=== PATIENT | female | born 1990 | race African-American/Black ===

== ENCOUNTER 2020-06-18 16:03 | Emergency (ER) | payer MEDICAID, OTHER ==
[~2020-06-18] VITALS: Ht 162.6 cm; Wt 57.6 kg
[2020-06-18 16:27] VITALS: BP 127/78
[2020-06-18] MEDS ORDERED: ACETAMINOPHEN 325 MG TAB PO ONE (17:45)
== END 2020-06-18 17:54 | disposition left against medical advice (07) ==
LOC: ER 16:05
DX: R21 Rash and other nonspecific skin eruption (principal); Z53.21 Procedure and treatment not carried out due to patient leaving prior to being seen by health care provider

== ENCOUNTER 2021-04-24 02:25 | Emergency (ER) | payer MEDICAID ==
[~2021-04-24] VITALS: Ht 162.6 cm; Wt 63.5 kg
[2021-04-24 05:45] VITALS: BP 118/91
== END 2021-04-24 06:00 | disposition home or self-care (01) ==
LOC: ER 02:25
DX: J03.80 Acute tonsillitis due to other specified organisms (principal); B96.89 Other specified bacterial agents as the cause of diseases classified elsewhere; M94.0 Chondrocostal junction syndrome [Tietze]; R07.81 Pleurodynia; R11.2 Nausea with vomiting, unspecified; M79.10 Myalgia, unspecified site; R53.83 Other fatigue; R06.02 Shortness of breath; Z20.822 Contact with and (suspected) exposure to COVID-19
CPT/HCPCS: 36415; 87426; 87804

== ENCOUNTER 2022-03-29 06:07 | Emergency (ER) | payer MEDICAID ==
[~2022-03-29] VITALS: Ht 160 cm; Wt 62.4 kg
[2022-03-29 07:12] VITALS: BP 126/72
[2022-03-29] MEDS ORDERED: ONDANSETRON ODT 4 MG TAB PO ONE (07:30)
[2022-03-29] MEDS ORDERED: ACETAMINOPHEN 500 MG TAB PO ONE (07:30)
[2022-03-29] MEDS ORDERED: ONDA-144 PO (08:12)
[2022-03-29] MEDS ORDERED: ACET-1080 PO (08:12)
== END 2022-03-29 08:16 | disposition home or self-care (01) ==
LOC: ER 06:07
DX: O26.892 Other specified pregnancy related conditions, second trimester (principal); G43.109 Migraine with aura, not intractable, without status migrainosus; Z79.899 Other long term (current) drug therapy; Z88.8 Allergy status to other drugs, medicaments and biological substances; Z91.013 Allergy to seafood; Z91.012 Allergy to eggs; Z3A.14 14 weeks gestation of pregnancy
CPT/HCPCS: 99283; Q0162

== ENCOUNTER 2022-05-02 06:27 | Emergency (ER) | payer MEDICAID ==
[~2022-05-02] VITALS: Ht 162.6 cm; Wt 64.0 kg
[~2022-05-02 06:27] MED LIST: ACET-1080 PO; ONDA-144 PO
[2022-05-02] MEDS ORDERED: SODIUM CHLORIDE 0.9% 1,000 ML IV ONE (08:00)
[2022-05-02] MEDS ORDERED: PROMETHAZINE HCL 25 MG/ML 1ML IV ONE (08:00)
[2022-05-02 08:46] LABS: Basophils # (auto) 0 10 ^3/uL (0-0.2); Basophils % (auto) 0.1 % (0.0-2.0); Eosinophils # (auto) 0 10 ^3/uL (0-0.8); Eosinophils % (auto) 0.3 % (0.0-7.0); Hematocrit 38.8 % (36.0-46.0); Hemoglobin 12.8 g/dL (12.2-16.2); Lymphocytes # (auto) 0.3 10 ^3/uL (0.4-5.4); Lymphocytes % (auto) 3.1 % (10.0-50.0); Mean Corpuscular Hemoglobin 30.8 pg (28.0-32.0); Mean Corpuscular Hgb Conc. 33.1 g/dL (32.0-36.0); Monocytes # (auto) 0.3 10 ^3/uL (0-1.3); Monocytes % (auto) 2.6 % (0.0-12.0); Neutrophils # (auto) 10.5 10 ^3/uL (1.6-8.6); Neutrophils % (auto) 93.9 % (37.0-80.0); Red Blood Cells 4.17 10^6/uL (4.0-5.20); Red Cell Distribution Width 13.8 % (11.8-14.3); White Blood Cell 11.2 10^3/uL (4.4-10.8)
[2022-05-02 09:40] LABS: Albumin 3.3 g/dL (3.4-5.0); Calcium 8.7 mg/dL (8.5-10.1); Potassium 4.3 mmol/L (3.5-5.1)
[2022-05-02 09:45] LABS: BUN/Creatinine Ratio 15.8; Bilirubin, Total 0.7 mg/dL (0.2-1.0); Total Protein 7.3 g/dL (6.4-8.2)
[2022-05-02 13:06] VITALS: BP 110/61
[2022-05-02 15:09] LABS: Urine Bacteria NONE SEEN /hpf (None Seen); Urine Blood Negative /uL (Negative); Urine Mucus FEW (None Seen); Urine Specific Gravity 1.028 (1.001-1.035); Urine WBC 1 /hpf (0 - 5)
[2022-05-02] MEDS ORDERED: CEPH-510 PO (16:16)
== END 2022-05-02 16:52 | disposition home or self-care (01) ==
LOC: ER 06:27
DX: D72.829 Elevated white blood cell count, unspecified (principal); Z88.8 Allergy status to other drugs, medicaments and biological substances; Z91.012 Allergy to eggs; Z91.013 Allergy to seafood; Z98.890 Other specified postprocedural states; Z3A.20 20 weeks gestation of pregnancy
CPT/HCPCS: 36415; 76805; 80053; 81001; 84702; 85025; 96361; 96374; 99284; J2550; J7030